=== PATIENT | female | born 1945 | race American Indian/Alaskan Native ===

== ENCOUNTER 2017-11-27 15:38 | Emergency (ER) | payer MEDICARE ==
[2017-11-27 16:11] VITALS: BMI 35.4
[2017-11-27 16:12] VITALS: RESP 18
--- NOTE | 2017-11-27 16:20 | ED PDOC ---
Arrival/HPI - General Chief Complaint: Lower Extremity Problem/Injury Time Seen by Provider: 11/27/17 15:48 Historian: Patient - History of Present Illness Narrative History of Present Illness (Text): 11/27/17 16:22 A 72 year old female, whose past medical history includes hypertension, presents to the emergency department complaining of left ankle pain for 1 week. Patient reports she has some leg swelling at night and upon going to bed and waking up the following morning, the swelling is gone. However recently patient has been having difficulty ambulating and placing pressure on the left ankle due to pain and some slight notable swelling. She notes does a lot of ambulating due to commuting back and forth from [place] to [place]. Patient denies any fever, chills, nausea, vomiting, abdominal pain, chest pain, shortness of breath, or any other complaints at this time. Also, patient mentions she takes Aspirin, but denies of any steroids. No PMD Past Medical History - Provider Review Nursing Documentation Reviewed: Yes - Infectious Disease Hx of Infectious Diseases: None - Tetanus Immunization Tetanus Immunization: Unknown - Cardiac Hx Hypertension: Yes - Pulmonary Hx Pulmonary Embolism: Yes - Hematological/Oncological Hx Blood Disorders: Yes Other/Comment: h/o DVT - Psychiatric Hx Psychophysiologic Disorder: No Hx Anxiety: No Hx Bipolar Disorder: No Hx Depression: No Hx Emotional Abuse: No Hx Hallucinations: No Hx Panic Disorder: No Hx Post Traumatic Stress Disorder: No Hx Psychosis: No Hx Physical Abuse: No Hx Schizophrenia: No Hx Sexual Abuse: No Hx Substance Use: No - Surgical History Hx Cholecystectomy: Yes Other/Comment: soinal fusion at age 13 - Anesthesia Hx Anesthesia: Yes Hx Anesthesia Reactions: No Hx Malignant Hyperthermia: No - Suicidal Assessment Feels Threatened In Home Enviroment: No Family/Social History - Physician Review Nursing Documentation Reviewed: Yes Family/Social History: No Known Family HX Smoking Status: Never Smoked Hx Alcohol Use: No Hx Substance Use: No Hx Substance Use Treatment: No Allergies/Home Meds Allergies/Adverse Reactions: Allergies Penicillins Allergy (Verified 11/27/17 16:02) ANAPHYLAXIS Home Medications: Home Meds Medication Instructions Recorded Confirmed Amlodipine Besylate [Norvasc] 5 mg PO DAILY 10/02/14 10/02/14 Benazepril HCl [Lotensin] 20 mg PO DAILY 10/02/14 10/02/14 Montelukast [Singulair] 10 mg PO DAILY 10/02/14 10/02/14 Review of Systems - Physician Review All systems were reviewed & negative as marked: Yes - Review of Systems Constitutional: absent: Fevers, Night Sweats Respiratory: absent: SOB Cardiovascular: absent: Chest Pain Gastrointestinal: absent: Abdominal Pain, Nausea, Vomiting Musculoskeletal: Other (left-ankle pain.) Physical Exam Vital Signs Reviewed: Yes Vital Signs Temp Pulse Resp BP Pulse Ox 11/27/17 15:40 98.2 F 68 18 162/91 H 98 Temperature: Afebrile Blood Pressure: Hypertensive Pulse: Regular Respiratory Rate: Normal Appearance: Positive for: Well-Appearing, Non-Toxic, Comfortable Pain Distress: None Mental Status: Positive for: Alert and Oriented X 3 - Systems Exam Head: Present: Atraumatic, Normocephalic Pupils: Present: PERRL Extroacular Muscles: Present: EOMI Conjunctiva: Present: Normal Mouth: Present: Moist Mucous Membranes Neck: Present: Normal Range of Motion Respiratory/Chest: Present: Clear to Auscultation, Good Air Exchange. No: Respiratory Distress, Accessory Muscle Use Cardiovascular: Present: Regular Rate and Rhythm, Normal S1, S2. No: Murmurs Abdomen: No: Tenderness, Distention, Peritoneal Signs Back: Present: Normal Inspection Upper Extremity: Present: Normal Inspection. No: Cyanosis, Edema Lower Extremity: Present: Tenderness (tenderness to palpation of cord near Achilles tendon.), Other (no calf pain, ). No: CALF TENDERNESS Neurological: Present: GCS=15, CN II-XII Intact, Speech Normal Skin: Present: Warm, Dry, Normal Color. No: Rashes Psychiatric: Present: Alert, Oriented x 3, Normal Insight, Normal Concentration Medical Decision Making ED Course and Treatment: 11/27/17 16:26 Impression: 72 year old female with left ankle pain/swelling Differential Diagnoses Includes But Is Not Limited To: Achilles Tendon Rupture DVT Plantar fascitis Plan: -- Left Ankle X-Ray -- Lower Extremity Ultrasound -- Reassess and disposition Progress Notes: 11/27/17 18:59 XR ankle shows no acute fracture or dislocation of the ankle mortise. Pending Doppler results. Significant swelling noted. Posterior short leg splint will be applied. 11/27/17 20:04 Review of US result shows negative DVT in b/l extremities. Patient states she will see Dr. Peters(ortho) for next steps. Wheelchair provided with ambulance transport arranged. Patient demonstrates understanding of the plan and will limit mobility with crutches for assistance until seen and cleared by Dr. Peters. She is stable for discharge. - RAD Interpretation Narrative RAD Interpretations (Text): 11/27/2017 18:23 Left Ankle X-Ray IMPRESSION: Soft tissue swelling without acute articular or osseous abnormality. Dictator: David Lugo MD Radiology Orders: 11/27/17 16:11 ANKLE LEFT 3 VIEWS ROUTINE [RAD] Stat DUPLEX LOWER EXTRM VEIN BILAT [US] Stat - Scribe Statement The provider has reviewed the documentation as recorded by the Scribe Paige Reyes Provider Scribe Attestation: All medical record entries made by the Scribe were at my direction and personally dictated by me. I have reviewed the chart and agree that the record accurately reflects my personal performance of the history, physical exam, medical decision making, and the department course for this patient. I have also personally directed, reviewed, and agree with the discharge instructions and disposition. Disposition/Present on Arrival - Present on Arrival Any Indicators Present on Arrival: No History of DVT/PE: No History of Uncontrolled Diabetes: No Urinary Catheter: No History of Decub. Ulcer: No History Surgical Site Infection Following: Orthopedic Procedures, None - Disposition Have Diagnosis and Disposition been Completed?: Yes Diagnosis: Ankle sprain Disposition: HOME/ ROUTINE Disposition Time: 20:02 Patient Plan: Discharge Patient Problems: Current Active Problems Problem Status Onset Ankle sprain Acute Condition: IMPROVED Discharge Instructions (ExitCare): Ankle Sprain (DC), Foot Sprain (DC), Achilles Tendinopathy (DC) Additional Instructions: Please use crutches to move around as needed. Please see the orthopedic surgeon for follow up regarding splint removal Referrals: Adryan Madrid MD [Primary Care Provider] - Follow up with primary Tito Peters DO [Staff Provider] - Follow up with primary Forms: [employer] (Kosovan), WORK NOTE
--- NOTE | 2017-11-27 18:26 | RAD ---
Date of service: 11/27/2017 PROCEDURE: Left Ankle Radiographs. HISTORY: swollen ankle w/ pain COMPARISON: None FINDINGS: BONES: Plantar calcaneal spur. No fracture. JOINTS: Normal. No osteoarthritis. Ankle mortise maintained. Talar dome intact SOFT TISSUES: Diffuse soft tissue swelling. No acute osseous abnormalities. OTHER FINDINGS: None. IMPRESSION: Soft tissue swelling without acute articular or osseous abnormality.
[2017-11-27 20:37] VITALS: BP 187/71; PULSE 74; TEMP 99; O2SAT 100
--- NOTE | 2017-11-28 16:52 | US ---
HISTORY: Leg pain and swelling. Evaluate for DVT PHYSICIAN(S): Kaiden Tavarez MD. TECHNIQUE: Duplex sonography and color-flow Doppler with graded compression were used to evaluate the deep venous systems of both lower extremities. FINDINGS: The visualized deep venous systems of both lower extremities are sonographically normal and compressible. Normal wave forms and augmentation are seen. There is no sonographic evidence for deep venous thrombosis in the visualized segments of both lower extremities. IMPRESSION: No sonographic evidence for deep venous thrombosis in the visualized segments of both lower extremities.
== END 2017-11-27 20:20 | disposition home or self-care (01) ==
LOC: ED 15:38
DX: S93.402A Sprain of unspecified ligament of left ankle, initial encounter (principal); X58.XXXA Exposure to other specified factors, initial encounter; I10 Essential (primary) hypertension

== ENCOUNTER 2018-06-08 09:45 | Emergency (ER) | payer MEDICARE ==
[2018-06-08 09:50] VITALS: BMI 34.7
[2018-06-08 09:59] VITALS: RESP 18; TEMP 98.3
--- NOTE | 2018-06-08 11:54 | ED PDOC ---
Arrival/HPI - General Chief Complaint: Lower Extremity Problem/Injury Time Seen by Provider: 06/08/18 09:47 Historian: Patient - History of Present Illness Narrative History of Present Illness (Text): 06/08/18 11:47 72-year-old female presents today with a 2 to 3-week history of right knee pain. Patient denies trauma or injury. Patient denies fevers or chills. Patient states she has had issues with the left knee in the past and over the past few weeks the right knee has been worsening. Patient states the pain is located over the medial aspect of the knee and radiates to the posterior aspect of the knee. Patient denies any recent travel. No chest pain or shortness of breath. pt states she took aleve yesterday with some improvement. no medications taken today for pain. Past Medical History - Provider Review Nursing Documentation Reviewed: Yes Primary Care Provider: Adryan Madrid - Travel History Have you recently traveled outside [place] w/in the past 3 mons?: No - Infectious Disease Hx of Infectious Diseases: None - Tetanus Immunization Tetanus Immunization: Unknown - Reproductive Menopause: Yes - Cardiac Hx Hypertension: Yes - Pulmonary Hx Respiratory Disorders: Yes - Hematological/Oncological Hx Blood Disorders: Yes Other/Comment: h/o DVT - Psychiatric Hx Psychophysiologic Disorder: No Hx Anxiety: No Hx Bipolar Disorder: No Hx Depression: No Hx Emotional Abuse: No Hx Hallucinations: No Hx Panic Disorder: No Hx Post Traumatic Stress Disorder: No Hx Psychosis: No Hx Physical Abuse: No Hx Schizophrenia: No Hx Sexual Abuse: No Hx Substance Use: No - Surgical History Hx Cholecystectomy: Yes Other/Comment: soinal fusion at age 13 - Anesthesia Hx Anesthesia: Yes Hx Anesthesia Reactions: No Hx Malignant Hyperthermia: No - Suicidal Assessment Feels Threatened In Home Enviroment: No Family/Social History - Physician Review Nursing Documentation Reviewed: Yes Family/Social History: Unknown Family HX Smoking Status: Never Smoked Hx Alcohol Use: No Hx Substance Use: No Hx Substance Use Treatment: No Allergies/Home Meds Allergies/Adverse Reactions: Allergies Penicillins Allergy (Verified 06/08/18 10:21) ANAPHYLAXIS Home Medications: Home Meds Medication Instructions Recorded Confirmed Amlodipine Besylate [Norvasc] 5 mg PO DAILY 10/02/14 10/02/14 Benazepril HCl [Lotensin] 20 mg PO DAILY 08/25/15 08/25/15 Montelukast [Singulair] 10 mg PO DAILY 10/02/14 10/02/14 Review of Systems - Review of Systems Constitutional: absent: Fatigue, Fevers Respiratory: absent: SOB, Cough Cardiovascular: absent: Chest Pain, Palpitations Gastrointestinal: absent: Abdominal Pain, Constipation, Diarrhea, Nausea, Vomiting Genitourinary Female: absent: Dysuria, Frequency, Hematuria Musculoskeletal: Arthralgias (right knee pain). absent: Back Pain, Neck Pain Skin: absent: Rash, Pruritis Neurological: absent: Headache, Dizziness Psychiatric: absent: Anxiety, Depression, Suicidal Ideation Physical Exam Vital Signs Reviewed: Yes Vital Signs Temp Pulse Resp BP Pulse Ox 06/08/18 09:46 98.3 F 61 18 192/97 H 98 Temperature: Afebrile Blood Pressure: Hypertensive Pulse: Regular Respiratory Rate: Normal Appearance: Positive for: Well-Appearing, Non-Toxic, Comfortable Pain Distress: None Mental Status: Positive for: Alert and Oriented X 3 - Systems Exam Head: Present: Atraumatic Mouth: Present: Moist Mucous Membranes Neck: Present: Normal Range of Motion Respiratory/Chest: Present: Clear to Auscultation, Good Air Exchange. No: Respiratory Distress, Accessory Muscle Use Cardiovascular: Present: Regular Rate and Rhythm, Normal S1, S2. No: Murmurs Abdomen: No: Tenderness, Distention, Peritoneal Signs Upper Extremity: Present: Normal Inspection Lower Extremity: Present: Normal Inspection, Normal ROM, Tenderness (right knee; + ttp over the medial aspect of the right knee; no edema, no erythema; no ecchymosis; sensation and distal pulses intact; cap refill <2. no calf ten derness. ) Neurological: Present: GCS=15 Skin: Present: Warm, Dry, Normal Color. No: Rashes Psychiatric: Present: Alert, Oriented x 3 Medical Decision Making ED Course and Treatment: 06/08/18 15:15 Patient nontoxic well-appearing in no distress with stable vital signs X-rays of the knee: No fracture: Venous duplex of the right lower extremity: No DVT. Patient given Motrin for pain. Patient placed in knee immobilizer. Patient has cane for ambulation at home. States she does not need a new one. Case was discussed with Dr. Peters in depth. He will follow-up with the patient tomorrow morning in the office. He advised having the patient call the office at 10 AM to schedule a follow-up time. I discussed all results with patient advised to followup with the orthopedist for the next 2 days. Return if symptoms worsen persist or new symptoms develop Patient verbalizes understanding of discharge instructions and need for immediate followup. All aspects of this case were discussed the attending of record. Impression: knee pain Motrin every 6 hours as needed for pain Tramadol 1 tablet every 6 hours as needed for moderate to severe pain: May cause drowsiness Rest, ice, compression, elevation Use crutches for ambulation Followup with the orthopedist tomorrow. Call Dr. Mann office at 10am tomorrow to schedule appointment. Followup with primary care physician within the next 2 days Return if symptoms worsen persist or if new symptoms develop Reassessment Condition: Re-examined, Improved - RAD Interpretation Radiology Orders: 06/08/18 10:42 KNEE W PATELLA RIGHT 3 VIEW [RAD] Stat DUPLEX LOWER EXTRM VEIN RIGHT [US] Stat - Medication Orders Current Medication Orders: Discontinued Medications Ibuprofen (Motrin Tab) 600 mg PO STAT STA Stop: 06/08/18 10:43 Last Admin: 06/08/18 10:53 Dose: 600 mg MAR Pain/Vitals Document 06/08/18 10:53 MA (Rec: 06/08/18 10:53 MA [facility] [place]-[id number]) Pain Reassessment Is This A Pain ReAssessment? Yes Sleep Is patient sleeping during reassessment? No Presence of Pain Presence of Pain Yes Pain Scale Used Protocol: PSCALES Pain Scale Used Numeric Location Left, Right or Bilateral Right Pain Location Body Site Knee Description Constant Intensity 4 Scale Used Numeric Pain Behavior Rubbing Site Facial Grimacing Disposition/Present on Arrival - Present on Arrival Any Indicators Present on Arrival: No History of DVT/PE: No History of Uncontrolled Diabetes: No Urinary Catheter: No History of Decub. Ulcer: No History Surgical Site Infection Following: Orthopedic Procedures, None - Disposition Have Diagnosis and Disposition been Completed?: Yes Diagnosis: Knee pain Disposition: HOME/ ROUTINE Disposition Time: 12:00 Patient Plan: Discharge Condition: GOOD Discharge Instructions (ExitCare): Knee Pain (DC) Additional Instructions: Motrin every 6 hours as needed for pain Tramadol 1 tablet every 6 hours as needed for moderate to severe pain: May cause drowsiness Rest, ice, compression, elevation Use crutches for ambulation Followup with the orthopedist tomorrow. Call Dr. Mann office at 10am tomorrow to schedule appointment. Followup with primary care physician within the next 2 days Return if symptoms worsen persist or if new symptoms develop Prescriptions: Ibuprofen [Motrin] 600 mg PO Q6H PRN #20 tab PRN Reason: pain/fever reduction traMADol [Ultram] 50 mg PO Q6H PRN #6 tab PRN Reason: moderate to severe pain Referrals: Adryan Madrid MD [Primary Care Provider] - Follow up with primary Tito Peters DO [Staff Provider] - Follow up with primary Forms: [employer] (Salvadorean), WORK NOTE
--- NOTE | 2018-06-08 12:16 | US ---
PROCEDURE: Right lower extremity venous US HISTORY: Leg pain and swelling. Evaluate for DVT. PHYSICIAN(S): Kaiden Tavarez M.D. TECHNIQUE: Duplex sonography and color-flow Doppler with graded compression were used to evaluate the deep venous system of the right lower extremity. FINDINGS: The visualized deep venous system of the right lower extremity is sonographically normal and compressible. Normal waveforms and augmentation are seen. There is no sonographic evidence for deep venous thrombosis in the visualized segments of the right lower extremity. IMPRESSION: 1. No sonographic evidence for deep venous thrombosis in the visualized segments of the right lower extremity.
--- NOTE | 2018-06-08 12:44 | RAD ---
Date of service: 06/08/2018 PROCEDURE: Right Knee Radiographs. HISTORY: knee pain COMPARISON: None. TECHNIQUE: Three views obtained. FINDINGS: BONES: Normal. No fracture. JOINTS: Joint space narrowing in the lateral aspect of the patellofemoral joint. JOINT EFFUSION: None. OTHER FINDINGS: None. IMPRESSION: Joint space narrowing in the lateral aspect of the patellofemoral joint.
[2018-06-08 12:50] VITALS: BP 176/91; PULSE 52; O2SAT 95
== END 2018-06-08 12:52 | disposition home or self-care (01) ==
LOC: ED 09:45
DX: M25.561 Pain in right knee (principal); I10 Essential (primary) hypertension; Z86.718 Personal history of other venous thrombosis and embolism

== ENCOUNTER 2018-06-24 17:45 | Outpatient (CLI) | payer MEDICARE | END 2018-06-24 17:46 | disposition home or self-care (01) | LOC: RAD 17:45 ==